=== PATIENT | female | born 1955 | race Caucasian/White ===

== ENCOUNTER 2019-11-11 07:43 | Day surgery (SDC) | payer MEDICARE, MEDICAID ==
[~2019-11-11] VITALS: Ht 147.3 cm; Wt 73.9 kg
[2019-11-11 08:03] LABS: BASOPHILS 0.1 % (0-2); EOSINOPHILS 1.1 % (0-7); HEMATOCRIT 41.6 % (36.0-48.0); HEMOGLOBIN 14.1 g/dL (12-16); IMMATURE GRANULOCYTES 0.5 % (0-5); LYMPHOCYTES 23.3 % (15-50); MCH 31.1 pg (26.0-34.0); MCHC 33.9 g/dL (31.0-37.0); MCV 91.6 fL (80.0-100.0); MEAN PLATELET VOLUME 8.3 fL (7.4-10.4); MONOCYTES 8.4 % (2-11); NEUTROPHILS 66.6 % (40-80); PLATELET COUNT 302 10x3/uL (130-400); RBC 4.54 10x6/uL (4.00-5.40); RDW 15.2 % (11.5-14.5); WBC 12.1 10x3/uL (4.8-10.8)
[2019-11-11 08:09] LABS: ANION GAP 13.4 mmol/L (8-16); CALCIUM 9.1 mg/dL (8.5-10.1); CREATININE - SERUM 0.9 mg/dL (0.6-1.3); POTASSIUM - SERUM 3.4 mmol/L (3.5-5.1)
[2019-11-11 08:22] LABS: INR 0.86 (0.85-1.17); PROTIME 11.6 SECONDS (11.6-15.0)
[2019-11-11] MEDS ORDERED: PREDNISONE20 MG PO (08:29)
[2019-11-11] MEDS ORDERED: TOPAMAX50 MG PO (08:29)
[2019-11-11] MEDS ORDERED: LISINOPRIL20 MG PO (08:30)
[2019-11-11] MEDS ORDERED: LISINOPRIL10 MG PO (08:30)
[2019-11-11] MEDS ORDERED: NORVASC10 MG PO (08:30)
[2019-11-11] MEDS ORDERED: WIXELA INHUB (08:31)
[2019-11-11] MEDS ORDERED: OMEPRAZOLE20 M1 PO (08:31)
[2019-11-11] MEDS ORDERED: AMBIEN10 MG PO (08:31)
[2019-11-11] MEDS ORDERED: SINGULAIR10 MG PO (08:31)
[2019-11-11 08:41] VITALS: BP 111/61; Ht 147.3 cm; Wt 73.9 kg
[2019-11-11] MEDS ORDERED: ULTRAM50 MG PO (13:07)
--- NOTE | 2019-11-11 15:07 | NUR ---
1415 IV REMOVED AND INSTRUCTIONS GIVEN TO PATIENT AND FAMILY MEMBER.
--- NOTE | 2019-11-15 21:03 | OP ---
PATIENT NAME: LEE OROZCO MEDICAL RECORD: [id number] :51 LOCATION:[facility] ADMISSION DATE: SURGEON: JAMAL ESPINOZA MD DATE OF OPERATION: 11/11/2019 REFERRING PHYSICIAN: Aubrey James, in [place]. PREOPERATIVE DIAGNOSIS: Temporal arteritis. POSTOPERATIVE DIAGNOSIS: Temporal arteritis. OPERATION PERFORMED: Bilateral temporal artery biopsy under local anesthesia with monitoring and sedation per RN BIRTHING. NOTE: Ms. Orozco is a very nice 64-year-old white female patient from [place], [place] with somewhat unusual cluster of symptoms possibly consistent with temporal arteritis if not variant migraine or migraine hemiplegic syndrome. She has been on prednisone now for about 2 months and has not had a temporal artery biopsy, and to rule in or out that diagnosis, she is brought to the hospital to have that done today. Under MAC per RN BIRTHING, the patient was placed in supine position, prepped, and draped in sterile manner. The course of the superficial temporal arteries was mapped with a handheld continuous wave Doppler. The right side was done first. Skin and subcutaneous tissues and deeper layers were infiltrated with 1% lidocaine without epinephrine and a longitudinal incision was made and carried down to the fascia and the artery and vein exposed. Segment was removed between clamps and the ends ligated with Vicryl. The specimen was sent to the laboratory in formalin for permanent section, labeled right temporal artery biopsy. The wound was infiltrated then with 0.25% Marcaine with epinephrine and closed in layers with interrupted 3-0 Vicryl and interrupted 4-0 Prolene for skin. The left side was then done in the same manner. Both incisions closed with interrupted Prolene sutures were covered with triple antibiotic ointment and the patient then awakened and in stable condition returned to the outpatient department. She will go home later today and return to see me in my office if needed, actually she can go to see her primary care physician, Dr. James on Saturday and have her sutures removed. I hope and should expect to have the pathology report back by Saturday and I will notify her as well as Dr. James of the findings and fax him a copy etc. TRANSINT:[id number] Voice Confirmation ID: [id number] DOCUMENT ID: [id number] JAMAL ESPINOZA MD at 6179 CC: KOAUBREY WILSON JR [employer] [id number] DICTATION DATE: 11/11/19 1314 SUPPLY CHAIN PROJECT MANAGER: 11/11/192229 [facility] 11/11/19 [facility] [address] [place] [address]
== END 2019-11-11 14:30 | disposition home or self-care (01) ==
LOC: D.OPS 07:43
PROVIDERS: ATTEND Surgery
DX: M31.6 Other giant cell arteritis (principal); J45.909 Unspecified asthma, uncomplicated; K21.9 Gastro-esophageal reflux disease without esophagitis; R03.0 Elevated blood-pressure reading, without diagnosis of hypertension